=== PATIENT | male | born 1975 | race Caucasian/White ===

== ENCOUNTER 2023-07-08 00:18 | Emergency (ER) | payer SELFPAY ==
[2023-07-08 00:44] VITALS: BP 141/98; PULSE 101; RESP 15; TEMP 36.6; O2SAT 100
[2023-07-08 00:46] LABS: Basophils Absolute Auto 0.1 K/mm3 (0.0-0.1); Basophils Percent Auto 0.6 % (0.2-1.2); Eosinophils Absolute Auto 0.3 K/mm3 (0-0.3); Eosinophils Percent Auto 1.6 % (0-4.4); Hematocrit 46.8 % (42.0-52.0); Hemoglobin 15.6 g/dL (14.0-18.0); Immature Granulocyte Absolute 0.07 K/mm3 (0.00-0.031); Immature Granulocyte Percent A 0.4 % (0-0.5); Lymphocytes Absolute Auto 5.18 K/mm3 (0.9-3.2); Lymphocytes Percent Auto 30.9 % (18.3-44.2); Mean Corpuscular HGB Conc 33.3 g/dl (32-36); Mean Corpuscular Hemoglobin 30.6 pg (26-34); Mean Corpuscular Volume 91.9 fl (80-100); Mean Platelet Volume 9.8 fl (7.4-10.4); Monocytes Absolute Auto 1.1 K/mm3 (0.1-0.6); Monocytes Percent Auto 6.6 % (2.6-8.5); Neutrophils Percent Auto 59.9 % (45.5-73.1); Platelet Count Result 329 k/mm3 (150-375); Red Blood Count 5.09 M/mm3 (4.6-6.20); Red Cell Distribution Width 13.1 % (11.5-14.5); White Blood Count 16.7 K/mm3 (4.5-10.0)
[2023-07-08 00:55] LABS: Alanine Aminotransferase 19 U/L (6-50); Albumin Level 4.3 g/dL (3.5-5.1); Alkaline Phosphatase 62 U/L (38-126); Anion Gap 7 mmol/L (8-16); Aspartate Amino Transferase 16 U/L (17-59); Bilirubin,Total 0.5 mg/dL (0.2-1.3); Blood Urea Nitrogen 16 mg/dL (9-20); Calcium 9.1 mg/dL (8.4-10.2); Carbon Dioxide 30 mmol/L (22-30); Chloride 97 mmol/L (98-107); Estimated CRCL calculation 102 ml/min; Estimated Glomerular Filt Rate > 60; Glucose 203 mg/dL (65-110); Potassium 4.1 mmol/L (3.4-5.0); Sodium 134 mmol/L (137-145)
[2023-07-08 01:00] LABS: Atypical Lymphocytes Present; Ovalocytes 1+ (NORMAL); Platelet Estimate Adequate (Adequate); Schistocytes None Seen (NORMAL)
[2023-07-08 03:17] VITALS: BP 128/76; PULSE 87; RESP 18; O2SAT 100
[2023-07-08] MEDS: ACETAMINOPHEN 500 MG TABLET 1000 MG PO (04:59)
[2023-07-08] MEDS: oxyCODONE HCL (*CRX) 5 MG TAB IR PO (05:00)
--- NOTE | 2023-07-08 05:28 | ED.GENADULT ---
HPI - General Adult General Chief complaint: Extremity Injury, Lower Stated complaint: bilateral leg pain/ vasculitis Time Seen by Provider: 07/08/23 03:58 History of Present Illness HPI narrative: This is a 48-year-old male presenting ED with a chief complaint of burning leg pain. Patient has been dealing with leukocytoplasmic vasculititis for about 2 years. Him and his daughter just moved to [place] in the are working to establish care at the OR. Patient has notices pain in the feet has an worse over the last 2 days. He has taken motrin for pain. He says this has been treated in the past with prednisone which helps treat his vasculitis. He is requesting pain medication and a prednisone prescription. Related Data Allergies Allergy/AdvReac Type Severity Reaction Status Date / Time ketorolac [From Toradol] Allergy Unknown Verified 07/08/23 03:24 [facility] Past Medical History Medical History (Updated 07/08/23 @ 05:35 by Leobardo Cuba MD) Diabetes Vasculitis Exam Narrative: APPEARANCE: No apparent distress. Head: atraumatic. EYES: EOMI, NOSE: Atraumatic NECK: Trachea midline RESPIRATORY: No increased rate of breathing CARDIOVASCULAR: RRR, Pulses intact in for 4 extremities. ABDOMINAL: Non-distended MUSCULOSKELETAl: No obvious deformities NEURO: Alert. Moving 4/4 extremities SKIN:: patient has multiple red lesions over his feet legs and hands. Some open ulcerations but no overt infection or cellulitis. Patient states he has wounds are all chronic. PSYCHIATRIC: Normal affect Course Vital Signs Vital signs: Vital Signs Temperature 97.8 F 07/08/23 00:44 Pulse Rate 101 H 07/08/23 00:44 Respiratory Rate 15 07/08/23 00:44 Blood Pressure 141/98 H 07/08/23 00:44 Pulse Oximetry 100 07/08/23 00:44 Oxygen Delivery Room Air 07/08/23 00:44 Temperature 97.8 F 07/08/23 00:44 Pulse Rate 87 07/08/23 03:17 Respiratory Rate 18 07/08/23 03:17 Blood Pressure 128/76 07/08/23 03:17 Pulse Oximetry 100 07/08/23 03:17 Oxygen Delivery Room Air 07/08/23 00:44 Medical Decision Making [facility] Narrative Medical decision making narrative: -Course: 48-year-old male with history of vasculitis presenting with increased lower extremity pain. Patient is requesting a course of prednisone which states almost completely resolved his symptoms. I reviewed his mychart from his previous hospital to confirm his dosing. Patient will be treated for pain and given a course of prednisone. He wants to establish care at the OR. Given return precautions. -DDX includes but is not limited to: vasculitis, peripheral neuropathy, diabetic neuropathy, venous stasis -Co-morbidities complicating care: vasculitic colitis, diabetes, obesity -Social determinants of health: patient is unemployed and is a dependent of his daughter. -External Chart Review: Review of patient's MyChart from [place]. -Hx from independent Sources: Daughter at bedside -Independent interpretation of studies: white count elevated at 16.7. Metabolic panel within normal limits. -Interventions: Oxycodone, Tylenol -Shared decision making / Disposition: discharge -RX prednisone taper, Motrin Tylenol Vital Signs Vital Signs: Vital Signs Temperature 97.8 F 07/08/23 00:44 Pulse Rate 101 H 07/08/23 00:44 Respiratory Rate 15 07/08/23 00:44 Blood Pressure 141/98 H 07/08/23 00:44 Pulse Oximetry 100 07/08/23 00:44 Oxygen Delivery Room Air 07/08/23 00:44 Temperature 97.8 F 07/08/23 00:44 Pulse Rate 87 07/08/23 03:17 Respiratory Rate 18 07/08/23 03:17 Blood Pressure 128/76 07/08/23 03:17 Pulse Oximetry 100 07/08/23 03:17 Oxygen Delivery Room Air 07/08/23 00:44 Lab Data 07/08/23 00:38 07/08/23 00:38 Labs: Lab Results 07/08/23 Range/Units 00:38 WBC 16.7 H (4.5-10.0) K/mm3 RBC 5.09 (4.6-6.20) M/mm3 Hgb 15.6 (14.0-18.0) g/dL Hct 46.8 (4
== END 2023-07-08 05:55 | disposition home or self-care (01) ==
PROVIDERS: Emergency Provider Emergency Medicine
DX: L95.9 Vasculitis limited to the skin, unspecified (principal); E11.9 Type 2 diabetes mellitus without complications
CPT/HCPCS: 36415; 80053; 85025; 99283; A9270